=== PATIENT | female | born 1935 | race Caucasian/White ===

== ENCOUNTER 2016-11-08 19:01 | Observation (INO) | payer MEDICARE ==
[~2016-11-08] VITALS: Ht 157.5 cm; Wt 84.1 kg
[~2016-11-08 19:01] MED LIST: MECL-114 PO
[2016-11-08 19:14] VITALS: BP 144/54; PULSE 68; RESP 16; O2SAT 100
--- NOTE | 2016-11-08 19:15 | ED.REPORT ---
HPI-General Illness Date of Service Nov 08, 2016 ED Provider: Manny Dickson DO Pt is an 81 year old female with a hx of vertigo and CAD presenting to the ED via EMS complaining of near syncope. The pt was at home when she felt like she was going to pass out so she pushed the life alert button around her neck. She was incontinent of stool and had some chest burning. She denies any other symptoms at this time. Nursing Notes Stated Complaint: DIZZY Chief Complaint: General Complaint Nursing Notes Reviewed: Yes Allergies: Coded Allergies: No Known Allergies (Unverified , 11/08/16) Scheduled Amlodipine (Amlodipine) 10 Mg Tablet 10 MG PO DAILY Clopidogrel (Clopidogrel) 75 Mg Tablet 75 MG PO DAILY Insulin Lisp Protam/Lisp Human (HumaLOG 75/25 U100 Insulin Vial) 100 Unit/Ml Ml 20 UNIT SUBQ MORNING Insulin Lisp Protam/Lisp Human (HumaLOG 75/25 U100 Insulin Vial) 100 Unit/Ml Ml 8 UNIT SUBQ QPM Levetiracetam (Levetiracetam) 500 Mg Tablet 500 MG PO DAILY Losartan Potassium (Losartan Potassium) 100 Mg Tablet 100 MG PO DAILY Lovastatin (Lovastatin) 40 Mg Tablet 40 MG PO HS Meclizine (Bonine) 25 Mg Tab.chew 25 MG PO QID Metoprolol Tartrate (Metoprolol Tartrate) 50 Mg Tablet 25 MG PO BID Scheduled PRN Ergocalciferol (Vitamin D2) (Vitamin D2) 400 Unit Tablet 1,000 UNIT PO DAILY PRN PRN For Anxiety Miscellaneous Medications Vit #76/Iron,Carb/FA (Prenatabs Rx Tablet) 1 Each Tablet 1 EACH PO General Time Seen by MD: 19:15 Chief Complaint Other (Lightheaded) Hx Obtained From: Patient, EMS Arrived By: Ambulance Sudden in Onset?: Yes Symptom Duration: Since onset Quality: Burning Severity: Current: No pain currently Severity: Maximum: Mild Recent Healthcare: No recent doctor visit, No recent hospitalization Similar Sx Previous: No Past Medical History Past Medical History Stroke 2009 CAD Vertigo IDDM Past Surgical History CABG - Aortic valve replacement Social History Former alcohol use Ambulatory Status Cane Review of Systems Full Review of Systems Cardiovascular: Reports: Chest pain (Burning) GI: Reports: Diarrhea, Denies: Abdominal pain, Nausea, Vomiting Neurologic: Reports: Bowel dysfunction, Dizziness, Lightheaded, Denies: Change LOC, Headache, Numbness, Slurred speech, Syncope, Weakness Complete sys rev & neg: except as marked. Physical Exam Vital Signs Vital Signs Date Time Temp Pulse Resp B/P Pulse Ox O2 Delivery O2 Flow Rate FiO2 11/08/16 22:35 83 18 192/76 95 11/08/16 20:46 73 16 178/62 99 Room Air 11/08/16 19:14 36.9 68 16 144/54 100 Room Air Initial VS: Reviewed General/Constitutional: Well-developed, Well-nourished Head / Eyes: Atraumatic, Normocephalic, PERRL ENT: Mucous membranes moist, Conjunctiva normal, No scleral icterus Neck: Supple, Non-tender, Full range of motion Respiratory: Breath sounds normal, Clear to auscultation, No respiratory distress Extremities: Vascular intact, Neuro intact, No swelling, No tenderness Skin: Warm, Dry, No cyanosis Neurologic: Alert, Oriented, Nonfocal Psychiatric: Mood/affect normal, Behavior normal, Normal thought content Abdomen: Soft, Non-tender Bowel Sounds / Distention: Positive: Bowel sounds hyperactive Interpretation & Diagnostics Lab Results Interpretation Result Diagram: 11/08/16192911/08/161929 Test 11/08/16 19:30 11/08/16 22:00 White Blood Count 18.6th/mm3 (3.8-10.1) Red Blood Count 4.20mil/mm3 (3.90-5.20) Hemoglobin 12.8g/dL (12.0-15.6) Hematocrit 38.8% (35.0-46.0) Mean Corpuscular Volume 92.4fL (81-100) Mean Corpuscular Hemoglobin 30.5pg (27.0-35.0) Mean Corpuscular Hemoglobin Concent 33.0% (32.0-37.0) Red Cell Distribution Width 13.2% (12.3-15.4) Platelet Count 221bil/L (150-400) Neutrophils (%) (Auto) 78.7% (40-74) Lymphocytes (%) (Auto) 9.2% (14-46) Monocytes (%) (Auto) 10.8% (4-12) Eosinophils (%) (Auto) 0.8% (0-5) Basophils (%) (Auto) 0.3% (0-3) D-Dimer 0.8mg/L (<0.50) Sodium Level 142mEq/L (134-144) Potassium Level 3.9mEq/L (3.5-5.2) Chloride Level 103mEq/L (97-108) Carbon Dioxide Level 25mmol/L (18-29) Blood Urea Nitrogen 30mg/dL (8-27) Creatinine 1.32mg/dL (0.57-1.00) Estimat Glomerular Filtration Rate 55mL/min (>59) Glucose Level 116mg/dL (60-99) Calcium Level 10.1mg/dL (8.5-10.1) Magnesium Level 2.0mg/dL (1.6-2.6) Total Bilirubin 0.2mg/dL (0.0-1.2) Aspartate Amino Transf (AST/SGOT) 21U/L (0-50) Alanine Aminotransferase (ALT/SGPT) 20U/L (0-32) Alkaline Phosphatase 48U/L (25-165) Troponin T < 0.010ug/L (0.0-0.011) Total Protein 7.2g/dL (6.4-8.4) Albumin 4.1g/dL (3.4-5.0) Hold Carnes Top Tube Received (Received) Urine Color Straw (YELLOW) Urine Appearance Hazy (CLEAR,HAZY) Urine pH 6.0 (5.0-8.0) Urine Specific [place] 1.010 (1.003-1.035) Urine Protein Negativemg/dL (NEG,TRACE) Urine Glucose (UA) Negativemg/dL (NEGATIVE) Urine Ketones Negativemg/dL (NEGATIVE) Urine Occult Blood Negative (NEGATIVE) Urine Nitrite Negative (NEGATIVE) Urine Bilirubin Negative (NEGATIVE) Urine Urobilinogen Normalmg/dL (NORMAL) Urine Leukocyte Esterase Trace (NEGATIVE) Urine RBC 0-2/hpf (0-2) Urine WBC 0-5/hpf (0-5) Urine Epithelial Cells Many/hpf (NONE-MOD) Urine Crystals None seen (NONE SEEN) Urine Bacteria Moderate/hpf (NONE-FEW) Urine Hyaline Casts None/lpf (NONE) Urine Granular Casts None seen (NONE SEEN) Urine Waxy Casts None seen (NONE SEEN) Urine Red Blood Cell Casts None seen (NONE SEEN) Urine White Blood Cell Casts None seen (NONE SEEN) Urine Mucus None seen (None Seen) Urine Trichomonas None seen (NONE SEEN) Urine Yeast Moderate (NONE SEEN) Urine Culture Reflexed Indicated ECG Interpretation ECG Interpretation: Ventricular premature complex. Prolonged [place] interval. LBBB. Rate 65. Time: 19:21 Interpreted by: ED physician Normal ECG Interpretation: Normal sinus rhythm Rhythm Strip Interpretation : Rhythm Strip Interpretation: Narrow complex. Normal sinus with PVCs. Rhythm Strip Interpretation: Interpreted by me, Normal sinus rhythm X-Ray Chest Interpretation Chest Xray Interpretation: IMPRESSION: No acute disease Dictated by: Rafael Bowie M.D. on 11/08/2016 at 20:34 View: Portable, 1 view Interpretation / Wet Read by: Interpret - Radiologist CT Chest Interpretation IMPRESSION: No pulmonary embolism Scattered atelectasis/scarring. Dictated by: Rafael Bowie M.D. on 11/08/2016 at 22:01 Study type: CT pulm angiogram Interpretation / Wet Read by: Interpret - Radiologist Re-Eval/Medical Decision Med Decision/Clinical Course 81-year-old female with near syncope and chest pain. Symptoms were also associated with incontinence of stool. Her workup is very benign aside from an 18,000 white blood cell count. Pulmonary by ruled out. Myocardial infarction seems unlikely. I will admit her to the hospital for overnight observation and hydration as I expect she is dehydrated. Time of Eval: 23:07 Patient Status: Condition improved Re-Evaluation/Progress Note: Discussed plan for admission. Pt understands and agrees with plan. Consultation : Referral / Consult Name: Saige Lynne MD Consulted With: Hospitalist Call Returned at: 23:14 Final Inspector Balance Wheel: Will see patient, Agrees with plan, Accepts admit Counseled Regarding: Diagnosis, Lab results, Need for follow-up, When/why to return to ED Discharge & Departure Primary Impression: Near syncope Additional Impression: Chest pain Chest pain type: precordial chest pain Qualified Code: R07.2 - Precordial pain Disposition: ADMITTED TO HOSPITAL Discharge Condition All VS Reviewed: Yes Condition: Improved Referrals: CHELSEA BACK MD (PCP) Scribe Attestation Portions of this note were transcribed by Misty Arndt. I, Dr. Dickson personally performed the history, physical exam and medical decision-making; I reviewed and confirmed the accuracy of the information in the transcribed note. Signed by : Javi Flores, 11/08/2016 and 2318. copies to: CHELSEA BACK MD, Todd P DO Nov 08, 2016 19:15 MISTY ARNDT Nov 08, 2016 19:39
[2016-11-08 20:02] LABS: BASOPHILS % (AUTO) 0.3 % (0-3); EOSINOPHILS % (AUTO) 0.8 % (0-5); MONOCYTES % (AUTO) 10.8 % (4-12); Mean Corpuscular Hemoglobin 30.5 pg (27.0-35.0); Mean Corpuscular Volume 92.4 fL (81-100); NEUTROPHILS % (AUTO) 78.7 % (40-74); Platelet Count 221 bil/L (150-400)
[2016-11-08 20:18] LABS: TROPONIN T < 0.010 ug/L (0.0-0.011)
--- NOTE | 2016-11-08 20:36 | DRSVH ---
PROCEDURE: X-RAY CHEST ONE VIEW, PORTABLE ([id number]) INDICATIONS: dizzy TECHNIQUE: One view of the chest was acquired. COMPARISON: None. FINDINGS: Surgical changes and devices: Sternotomy wires and cardiac valvular prosthesis Lungs and pleura: No pleural effusions or pneumothorax. Lungs are clear. Mediastinum: Mediastinal contours appear normal. Heart size is normal. Bones and chest wall: No suspicious bony lesions. Overlying soft tissues appear unremarkable. IMPRESSION: No acute disease Dictated by: Rafael Bowie M.D. on 11/08/2016 at 20:34 Approved by: Rafael Bowie M.D. on 11/08/2016 at 20:34
[2016-11-08] MEDS ORDERED: 0.9% Sodium Chloride 1,000 ML IV ONE (20:45)
[2016-11-08 20:46] VITALS: BP 178/62; PULSE 73; RESP 16; O2SAT 99
--- NOTE | 2016-11-08 22:03 | DRSVH ---
PROCEDURE: CT ANGIO CHEST PULMONARY EMBOLISM ([id number]) INDICATIONS: near syncope, chest pain, dizzy, elelvated ddimer TECHNIQUE: After the administration of intravenous contrast, 2 mm thick sections acquired from the pulmonary api josy to the posterior costophrenic angles. 3-dimensional maximum intensity projection (MIP) coronal a nd sagittal reformats were then acquired through the thorax. For radiation dose reduction, the follo wing was used: automated exposure control, adjustment of mA and/or kV according to patient size. COMPARISON: None. FINDINGS: Image quality: Excellent. Pulmonary arteries: Pulmonary arteries are normal in size, and demonstrate no intraluminal filling d efects to suggest central pulmonary embolism. Lungs and pleura: No acute consolidation. Diffuse scarring/atelectasis No pleural effusions or pneumo thorax. Central and peripheral airways are patent. Mediastinum: Heart size is normal, without pericardial effusion. No mediastinal or hilar adenopathy . Thoracic aorta is normal in caliber and enhancement. Esophagus is normal in caliber, without hiat al hernia. Bones and chest wall: No suspicious bony lesions. Ribs and thoracic spine appear intact throughout. Thyroid gland is unremarkable. No axillary or supraclavicular adenopathy. Abdomen: Visualized upper abdominal solid organs appear normal in the early arterial phase of enhanc ement. IMPRESSION: No pulmonary embolism Scattered atelectasis/scarring. Dictated by: Rafael Bowie M.D. on 11/08/2016 at 22:01 Approved by: Rafael Bowie M.D. on 11/08/2016 at 22:01
[2016-11-08 22:35] VITALS: BP 192/76; PULSE 83; RESP 18; O2SAT 95
[2016-11-08 22:55] LABS: APPEARANCE,URINE HAZY (CLEAR,HAZY); COLOR,URINE STRAW (YELLOW); OCCULT BLOOD,URINE NEGATIVE (NEGATIVE); UROBILINOGEN,URINE NORMAL (NORMAL); YEAST,URINE MODERATE (NONE SEEN)
[2016-11-09] VITALS (11 sets, daily range): BP systolic 134–174; BP diastolic 62–78; PULSE 57–82; RESP 16–22; O2SAT 95–100
[2016-11-09] MEDS ORDERED: AMLO10TA3 PO (00:02)
[2016-11-09] MEDS ORDERED: LOSA100T29 PO (00:02)
[2016-11-09] MEDS ORDERED: METO50TA3 PO (00:03)
[2016-11-09] MEDS ORDERED: CLOP75TA28 PO (00:03)
[2016-11-09] MEDS ORDERED: LEVE500T3 PO (00:04)
[2016-11-09] MEDS ORDERED: PREN-54 PO (00:05)
[2016-11-09] MEDS ORDERED: LOVA40TA PO (00:05)
[2016-11-09] MEDS ORDERED: HMLG7525I SUBQ ×2 (00:06→00:07)
[2016-11-09] MEDS ORDERED: Polyethylene Glycol (PEG) 17 Gm Powder PO PRN (00:45)
[2016-11-09] MEDS ORDERED: Ondansetron 2 mg/mL 2 mL Inj IVPUSH PRN (00:45)
[2016-11-09] MEDS ORDERED: Alum-Mag Hydrox-Simeth 30 mL Suspension PO PRN (00:45)
[2016-11-09] MEDS ORDERED: ERGO400T7 PO (01:24)
--- NOTE | 2016-11-09 01:30 | NUR ---
ADMIT Pt admitted to unit via gurney around 0100. Pt oriented to floor, room, call light. Belongings stored in closet, waiver signed. Med rec completed, paged. Admission interventions and assessments completed. No s/sx of distress.
--- NOTE | 2016-11-09 02:11 | PCM.HPMED ---
Subjective Date of Service Nov 09, 2016 Primary Provider: Admitting Physician: Saige Lynne MD Primary Care Physician: Chelsea Back MD Attending Physician: Saige Lynne MD Chief Complaint: Dizziness and shakiness History of Present Illness: Samantha is an 81-year-old obese female with significant history of hypertension , diabetes mellitus on insulin, history of stroke and history of seizures who presents with near syncopal episode several hours prior to presentation in the ER. Samantha presents with her daughter Saige. She reports that on the afternoon of 11/08/2016 she was experiencing some heartburn which was relieved minimally by a generic [id number] antacid. She attempted to make something for herself for dinner, and experienced lightheadedness. This lightheadedness led to feeling unsteady on her feet with shakiness at which time she laid her head down on her arms on the counter. She notes that her body felt very heavy at this time. She then experienced one episode of diarrhea (she is usually constipated and had taken milk of magnesia 2 days previous). She also reports that she has had a low-grade daily headache for the last 2 weeks relieved by Tylenol (her history includes occasional headaches but not that frequently). She reports that she did not faint, but did call for help, and was brought to the ER. She reports that she presented to the ER back on 10/24/2016 with complaint of dizziness at which time she was given meclizine. She notes that the meclizine makes her very tired, so she only took it a few times, and is not currently taking it. There was a brain CT without contrast performed at that time which was negative for acute changes. In addition to the above, she reports chronic dizziness since her stroke in 2008. She reports for the last day or 2 experiencing more shortness of breath with exertion and occasional palpitations, but without chest pain. She reports that for the last several weeks she has had a "pulled muscle" in her right mid lower back which is uncomfortable when she moves or when it is pushed on. She otherwise denies other complaints. Review of Systems: Comprehensive review of systems conducted and was negative except for the pertinent positives listed in history of present illness above. 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)-she reports she has been taking clopidogrel ever since the surgery Diabetes mellitus type II (diagnosed in 2009) on insulin, and reports that her kidneys have been affected by this History of stroke in 2008 as a complication of her postsurgical recovery (AVR) * Right frontoparietal History of seizures following her stroke in 2008 Remote history of PUD without reported history of bleed Obesity Constipation AVR in 2008 Tonsillectomy decades ago Family History Report significant family history of hypertension in females Family history of diabetes mellitus Her mother had lymphoma Social History Hx Alcohol Use: Yes (never heavy, only very rarely now) Hx Substance Use: No Hx Tobacco Use: Yes Smoking Status: Former Smoker (never heavy, quit decades ago) Living Arrangement: with Family Exam Vital Signs Vital Sign - Last Date Time Temp Pulse Resp B/P Pulse Ox O2 Delivery O2 Flow Rate FiO2 11/08/16 22:35 83 18 192/76 95 11/08/16 20:46 Room Air 11/08/16 19:14 36.9 Intake and Output 11/08/16 11/08/16 11/09/16 Cumulative From/Thru 15:00 23:00 07:00 11/08/16 19:14 - 11/08/16 20:56 Intake Total 1000 ml 1000 ml Balance 1000 ml 1000 ml Intake IV Total 1000 ml 1000 ml Exam General: Alert, Oriented X3, Cooperative, mild Distress, sitting up on an ER gurney. Some shakiness present most notable in the arms. Head: Normocephalic, atraumatic. External ears normal. Eyes: PERRL, EOMI. Anicteric sclerae. Mouth: Mouth Normal, Mucous Membranes Moist/[place], upper and lower dentures present Neck: Neck supple with full range of motion. No Thyromegaly. Chest & Lungs: Clear to auscultation bilaterally with no crackles, wheezes, or rhonchi. Cardiovascular: Regular Rate/Rhythm, Normal S1, clinic on S2 consistent with AVR, No Murmurs/Rubs/Gallops appreciated. Radial and posterior tibial pulses are 2+ bilaterally. No JVD. Right-sided carotid bruit present. Abdomen: Non-tender, Non-distended, No masses, Normoactive bowel tones, Soft Musculoskeletal: Normal Range of Motion, there is some tightness of the paraspinal musculature bilaterally in the mid lower spine without spinous process tenderness. This is in the area of the right CVA. It is tender to palpation and percussion. Extremities: No cyanosis/clubbing/edema bilat Neurological: Grossly Neurologically Intact, Cranial Nerves 2-12 Intact, Normal Speech, Cerebellar Function nl Finger-Nose Psych: Normal mood and affect. Thought process and content intact. Lab and Diagnostics Labs Laboratory Tests 72 Hours Test 11/08/16 19:30 11/08/16 22:00 White Blood Count 18.6th/mm3 (3.8-10.1) Red Blood Count 4.20mil/mm3 (3.90-5.20) Hemoglobin 12.8g/dL (12.0-15.6) Hematocrit 38.8% (35.0-46.0) Mean Corpuscular Volume 92.4fL (81-100) Mean Corpuscular Hemoglobin 30.5pg (27.0-35.0) Mean Corpuscular Hemoglobin Concent 33.0% (32.0-37.0) Red Cell Distribution Width 13.2% (12.3-15.4) Platelet Count 221bil/L (150-400) Neutrophils (%) (Auto) 78.7% (40-74) Lymphocytes (%) (Auto) 9.2% (14-46) Monocytes (%) (Auto) 10.8% (4-12) Eosinophils (%) (Auto) 0.8% (0-5) Basophils (%) (Auto) 0.3% (0-3) D-Dimer 0.8mg/L (<0.50) Sodium Level 142mEq/L (134-144) Potassium Level 3.9mEq/L (3.5-5.2) Chloride Level 103mEq/L (97-108) Carbon Dioxide Level 25mmol/L (18-29) Blood Urea Nitrogen 30mg/dL (8-27) Creatinine 1.32mg/dL (0.57-1.00) Estimat Glomerular Filtration Rate 55mL/min (>59) Glucose Level 116mg/dL (60-99) Calcium Level 10.1mg/dL (8.5-10.1) Magnesium Level 2.0mg/dL (1.6-2.6) Total Bilirubin 0.2mg/dL (0.0-1.2) Aspartate Amino Transf (AST/SGOT) 21U/L (0-50) Alanine Aminotransferase (ALT/SGPT) 20U/L (0-32) Alkaline Phosphatase 48U/L (25-165) Troponin T < 0.010ug/L (0.0-0.011) Total Protein 7.2g/dL (6.4-8.4) Albumin 4.1g/dL (3.4-5.0) Hold Carnes Top Tube Received (Received) Urine Color Straw (YELLOW) Urine Appearance Hazy (CLEAR,HAZY) Urine pH 6.0 (5.0-8.0) Urine Specific [place] 1.010 (1.003-1.035) Urine Protein Negativemg/dL (NEG,TRACE) Urine Glucose (UA) Negativemg/dL (NEGATIVE) Urine Ketones Negativemg/dL (NEGATIVE) Urine Occult Blood Negative (NEGATIVE) Urine Nitrite Negative (NEGATIVE) Urine Bilirubin Negative (NEGATIVE) Urine Urobilinogen Normalmg/dL (NORMAL) Urine Leukocyte Esterase Trace (NEGATIVE) Urine RBC 0-2/hpf (0-2) Urine WBC 0-5/hpf (0-5) Urine Epithelial Cells Many/hpf (NONE-MOD) Urine Crystals None seen (NONE SEEN) Urine Bacteria Moderate/hpf (NONE-FEW) Urine Hyaline Casts None/lpf (NONE) Urine Granular Casts None seen (NONE SEEN) Urine Waxy Casts None seen (NONE SEEN) Urine Red Blood Cell Casts None seen (NONE SEEN) Urine White Blood Cell Casts None seen (NONE SEEN) Urine Mucus None seen (None Seen) Urine Trichomonas None seen (NONE SEEN) Urine Yeast Moderate (NONE SEEN) Urine Culture Reflexed Indicated Result Diagram: 11/08/16192911/08/161929 X-Rays, CTs and MRIs Date of Service: 11/08/161912 PROCEDURE: X-RAY CHEST ONE VIEW, PORTABLE ([id number]) INDICATIONS: dizzy COMPARISON: None. IMPRESSION: No acute disease Dictated by: Rafael Bowie M.D. on 11/08/2016 at 20:34 Date of Service: 11/08/162128 PROCEDURE: CT ANGIO CHEST PULMONARY EMBOLISM ([id number]) INDICATIONS: near syncope, chest pain, dizzy, elelvated ddimer COMPARISON: None. IMPRESSION: No pulmonary embolism Scattered atelectasis/scarring. Dictated by: Rafael Bowie M.D. on 11/08/2016 at 22:01 12-lead ECG Sinus rhythm with a rate of 65, and 1 PVC, normal axis, prolonged LA interval ( appears to be first-degree block), prolonged QRS (borderline), otherwise interval durations are normal, left bundle branch block, no significant ST or T- wave changes suggestive of ischemia. When compared with ECG on 10/24/2016 no significant change. Assessment & Plan 81-year-old obese female with history of stroke and chronic dizziness, hypertension, seizures, diabetes who presents with near syncope. 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 Near syncope in patient with chronic dizziness and history of stroke and seizures, dizziness and shakiness present on admission * Unclear etiology at this time. Differential includes neurocardiogenic/ vasovagal, orthostatic (deconditioning, perhaps autonomic neuropathy secondary to diabetes or CKD), cardiovascular (arrhythmia or mechanical), neurologic ( seizure, TIA/CVA, migraine). * She is not hypoxic, hypoglycemic. * We will start with orthostatic assessment * As she is hypertensive at this time, we will continue her Metoprolol tonight, but could consider holding this given her presentation * She will also get a dose of her evening Keppra tonight * We will check Keppra level and also check CPK * Carotid ultrasound, no need to repeat CT scan of the head (last done 2015) * Echo to assess for cardiac function, and any mechanical abnormalities ( valvular disease, please note history of AVR) * ECG repeated in the morning * Consideration for an exercise stress test with pharmacologic backup given her report of shortness of breath and palpitations * Telemetry * She received 1 L IVNS in the ER, but will hold off on further fluid administration 2. Shortness of breath and palpitations, present on admission * Unclear etiology, but suspect association with #1 * Perhaps related to an ACS (difficult to determine on ECG given her bundle branch block), or underlying infectious/other stress process given her hypertension and leukocytosis * No sign of fluid overload, pulmonary embolism, parenchymal pulmonary disease, anemia * Management as above * We will trend troponins * Monitor closely for symptoms 3. Leukocytosis with 78% neutrophils, present on admission * Unclear etiology at this point. * Chest x-ray is negative without respiratory symptoms (exception of SOB), urine analysis is unremarkable (please note moderate epithelial cells indicating contamination) without urinary symptoms, solitary episode of diarrhea of unclear significance. * Continue to monitor vitals and labs * No clear indication for antibiotics at this time 4. Hypertension, essential, worse on admission (when compared to patient report of ambulatory values) * Workup as in #1 * She will get metoprolol tonight according to home dose, but consideration for holding antihypertensives is certainly a possibility given her presentation * Will continue losartan and amlodipine at least tentatively until further consideration 5. Headache, reportedly mild but persistent, present on admission * Perhaps related to her hypertension, and hopefully will improve as that is treated * Tylenol as needed for symptom relief * Other workup as above 6. Renal insufficiency of unknown chronicity, present on admission * Elevated BUN and creatinine (please note that the BUN and creatinine on 2015 was 28/1.13). Otherwise unknown baseline * Patient and daughter report that the diabetes have "affected her kidneys," but this is nonspecific * She received a liter of IVNS in the ER * Avoid nephrotoxic medications if possible * Monitor lab 7.Diabetes mellitus type II on insulin, hyperglycemic on admission * Correction insulin to be started tonight, low-dose * We will check an A1c * Consideration for continuing patient's home insulin 8. History of AVR * Workup as noted in #1 and #2 9. History of seizures, on Keppra * We will continue Keppra * Workup as noted in #1 10. Right mid lower back discomfort, present on admission * Reports pulling a muscle, and notes increased discomfort with movement and palpation of the area * Suspect musculoskeletal etiology * Differential could include a right sided pyelonephritis given the location of the discomfort (but this is much less likely given her presentation and findings on UA) * Tylenol as needed for pain * Consideration for K pad if needed 11. First-degree AV block, present on admission and of unknown chronicity * Repeat ECG as noted above * Telemetry 12. Chronic hyperlipidemia * Continue statin PRN MEDICATIONS - Acetaminophen as needed for mild pain/fever/headache - Bowel regimen as needed - Antiemetic as needed Patient is admitted under observation status with expected length of stay less than 2 midnights due to severity of presenting symptoms, risk of adverse event, and complexity of treatment plan. Pain Evaluation: Adequate Pain Control GI Prophylaxis: Not indicated VTE Prophylaxis: Sub-Q Heparin (Unfractionated) Resuscitation Status: DNR/DNI:Do Not Resuscitate/Intubate Attending Statement Pt seen and examined by myself and agree with above plan. copies to: CHELSEA BACK MD, Collin T DO Nov 09, 2016 02:11 Saige Lynne MD Nov 09, 2016 06:13
[2016-11-09] MEDS ORDERED: Glucose 40% Oral Gel 15 Gm Tube PO PRN (02:15)
[2016-11-09 03:18] LABS: BASOPHILS % (AUTO) 0.3 % (0-3); EOSINOPHILS % (AUTO) 0.9 % (0-5); MONOCYTES % (AUTO) 9.1 % (4-12); Mean Corpuscular Hemoglobin 30.4 pg (27.0-35.0); Mean Corpuscular Volume 90.9 fL (81-100); NEUTROPHILS % (AUTO) 61.2 % (40-74); Platelet Count 191 bil/L (150-400)
[2016-11-09 03:40] LABS: TROPONIN T 0.01 ug/L (0.0-0.011)
[2016-11-09 03:51] LABS: Magnesium 1.8 mg/dL (1.6-2.6)
[2016-11-09] MEDS: Sodium Chloride LOK Flush 10 mL Syringe IVFLUSH SCH ×3 (03:52→17:06)
[2016-11-09] MEDS: Heparin 5,000 Unit/mL Inj SUBQ SCH ×3 (03:52→17:06)
[2016-11-09] MEDS: levETIRAcetam 500 mg Tablet PO SCH ×3 (03:52→20:20)
--- NOTE | 2016-11-09 04:00 | NUR ---
Rhythm/TELE 0400 tele requested 12 lead EKG for further evaluation of possible Wenckebach rhythm. No s/sx of distress from pt. EKG obtained, copy sent to TELE paged. up to room to review EKG strip. Continuing to monitor.
[2016-11-09] MEDS: Insulin LISPRO 300 Unit/3 mL Inj SUBQ SCH ×4 (08:00→20:20)
--- NOTE | 2016-11-09 10:42 | NUR ---
Abnormal Telemetry Dr Paez here and notified r/t epitaxial reactor technician Tele called and states," heart rate 43, mostly low 50 to low 60's, massive 0.36 first degree heart block briefly noted, non conductive PAC, pauses around 2 seconds." Also notified Dr paez that before scheduled blood pressure medication given heart rate 73 and blood pressure 145/58. doctor orders to hold metoprolol next dose and have tele print abnormal Tele. called and notified epitaxial reactor technician and aware.
--- NOTE | 2016-11-09 11:05 | DRSVH ---
PROCEDURE: US BILATERAL DUPLEX DOPPLER IMAGING OF THE CAROTIDS ([id number]) INDICATIONS: right-sided carotid bruit, dizziness TECHNIQUE: Color and pulse Doppler interrogation was performed of both carotid systems, with image documentation and velocity measurements. COMPARISON: None. FINDINGS: All stenosis calculations are based on NASCET criteria. Right side: Brachial blood pressure: 146/68 mm Hg. Common Carotid Artery(Distal) PSV: 109.50 cm/s Internal Carotid Artery PSV- Proximal: 67.90 cm/s waveform is abnormal. Mid: There is thought to be only a thread of opening at this point. Distal: 89.10 cm/s waveform becomes abnormal EDV - Proximal: 13 cm/s Distal: 21.30 cm/s External Carotid Artery(Proximal) PSV: 82.50 cm/s ICA/CCA PSV ratio: 0.8 Acevedo scale imaging description: Prominent atherosclerotic plaquing is present. Percent internal carotid artery stenosis: There is a critical stenosis, thread like only in the proxi mal internal carotid artery.. Vertebral artery: Flow direction is antegrade. Left side: Brachial blood pressure: 145/58 mm Hg. Common Carotid Artery(Distal) PSV: 130.80 cm/s Internal Carotid Artery PSV - Proximal: 104.90 cm/s Mid-lon.20 cm/s Distal: 105.60 cm/s, 114.10 cm/s EDV - Proximal: 23.90 cm/s Mid-lon.10 cm/s Distal: 21.80 cm/s, 22.40 cm/s External Carotid Artery(Proximal) PSV: 180.70 cm/s ICA/CCA PSV ratio: 0.9 Acevedo scale imaging description: There is moderate plaquing at the origin of the internal carotid nessa ry Percent internal carotid artery stenosis: Less than 50% diameter stenosis.. Vertebral artery: Flow direction is antegrade. IMPRESSION: There is a critical stenosis of the right internal carotid artery near the origin with wh at appears to be only a thread of opening that most. This is less than 50% diameter stenosis at the origin of the left internal carotid artery. Dictated by: Cirilo Bailey M.D. on 11/09/2016 at 11:03 Approved by: Cirilo Bailey M.D. on 11/09/2016 at 11:03
--- NOTE | 2016-11-09 12:04 | NUR ---
MRI Scan patient went for MRI. avelina paged Dr Carranza to notify that Telemetry off before MRI per radiology. windmill technician aware.
--- NOTE | 2016-11-09 12:27 | NUR ---
Back from MRI Patient back from MRI. Tele on and notified case monitor.
--- NOTE | 2016-11-09 13:40 | DRSVH ---
PROCEDURE: MRI STROKE PROTOCOL ([id number]) Pre- and post-contrast brain MRI, non-contrast brain MR angiogram, pre- and postcontrast neck MR linda ogram INDICATIONS: LIGHTHEADEDNESS,TIA TECHNIQUE: Brain: Noncontrast axial T1 spin echo, axial T2 fast spin echo, sagittal and axial FLAIR, coronal T2 fast spin echo, axial gradient echo, axial diffusion and ADC through the brain. After the administr ation of contrast, axial 3D VIBE of the cranial vasculature and brain. Brain MRA: Non-contrast 3-D time of flight MR angiogram, with multiple lsligdo-ifiwmojcv-abnlmwehra (MIP) reformats performed. Neck MRA: Axial and sagittal TruFISP through the neck. Coronal dynamic MR angiogram during administ ration of contrast in the arterial and venous phases, with 3-dimenstional qfzkvid-tsmmweaba-rzriuyeen n (MIP) reformats constructed from subtraction images. COMPARISON: [facility], CT, CT BRAIN WO CON, 10/24/2016, 10:35. [facility], US, US CAROTID DPLX DOPPLER BILAT, 11/09/2016, 7:48. FINDINGS: Image quality: Excellent. BRAIN: CSF spaces: Ventricles are normal in size and shape. Basal cisterns are patent. No extra-axial flu id collections. Brain: No intracranial bleeds or mass effects. Moderate sized chronic right anterolateral frontal l obe infarct. Moderate degree of patchy high FLAIR signal within the periventricular and subcortical w jaleel matter, most likely representing small vessel ischemic disease. Acevedo-white matter interface is n ormal. Diffusion weighted images show no acute ischemic insults. Brainstem appears normal. Normal intravascular flow voids are present. No abnormal intracranial enhancement. Skull and face: Calvarial marrow signal is normal. Orbits appear normal. Sinuses: Moderate bilateral mastoid fluid. Sinuses and mastoids are otherwise clear. BRAIN MR ANGIOGRAM: Anterior circulation: Intracranial internal carotid arteries are normal in size and enhancement. Th e flow within the paired anterior cerebral arteries is normal and symmetric. The flow within the mid dle cerebral arteries is normal and symmetric. The anterior communicating artery is seen. No stenos es, occlusions, or aneurysms. Posterior circulation: The visualized portions of the vertebral arteries demonstrate normal caliber, and join to form a normal appearing basilar artery. The flow within the posterior cerebral arteries is normal and symmetric. No stenoses, occlusions, or aneurysms. NECK MR ANGIOGRAM: Great vessels demonstrate a conventional anatomy as they arise from the aortic arch. There is a suboptimally visualized moderate stenosis of the innominate artery origin. Right subclavia n artery demonstrates a roughly 66% stenosis. Right vertebral artery is patent. The right common carotid artery is not well-seen proximally, but is patent distally. The right lock plater al carotid artery demonstrates a high-grade origin stenosis. The right internal carotid artery demons trates a roughly 50% origin stenosis, and is otherwise patent. The left common carotid artery is patent. The left external carotid artery demonstrates a mild origin stenosis. The left internal carotid artery demonstrates a roughly 20% origin stenosis. The left inte rnal carotid artery is tortuous, with a pharyngeal loop. The left subclavian artery is patent. There is a moderate left vertebral artery origin stenosis. Left vertebral artery is otherwise patent. IMPRESSION: BRAIN MRI: 1. No acute intracranial abnormality; no recent infarct. 2. Volume loss and small vessel ischemic disease. 3. Chronic right frontal lobe infarct. 4. Bilateral mastoid fluid. BRAIN MR ANGIOGRAM: Negative cerebral MR angiography. NECK MR ANGIOGRAM: 1. Moderate right and mild left internal carotid artery origin stenoses as described above. 2. Innominate and right subclavian artery stenoses. 3. Moderate left vertebral artery origin stenosis. Right vertebral artery patent. The estimate of stenosis included in the report of the imaging study was calculated using the NASCET method Findings were discussed with Dr. Carranza on 11.09.16 at 1332 hrs. Dictated by: Eduarda Mcdonald M.D. on 11/09/2016 at 13:39 Approved by: Eduarda Mcdonald M.D. on 11/09/2016 at 13:39
--- NOTE | 2016-11-09 14:41 | NUR ---
Ortho Blood pressure Laying 137/77 pulse 53. Sitting 155/65 pulse 59. Standing 169/68 pulse 74. patient c/o dizziness when changed position from sitting to standing position. denies shortness of breath at rest. slight shortness of breath noted from sitting to standing.
--- NOTE | 2016-11-09 15:37 | NUR ---
Social Work: Initial Assessment Data: Pt is an 81 y/o female admitted for near syncope with chest pain. Pt's PCP is Dr Carr, pt's insurance is [employer]. EMR reviewed, INFORMATION ASSURANCE ENGINEER met with pt and daughters at bedside, role explained. Pt states that she lives alone in a two story home where she uses a walker and cane and does not go down stairs. She reports that she drives locally, has no history with HH, spent time at [facility] in [place], and has not LTC or VA benefits. Pt is not a caregiver for another. INFORMATION ASSURANCE ENGINEER will continue to follow to R/O possible HH need. Assessment: Pt who is independent at baseline. Plan: Pt will d/c home via POV. INFORMATION ASSURANCE ENGINEER will continue to follow to R/O possible HH need. CAROLYN Sanchez Addendum: 11/09/16 at 1541 by AHSAN MULLEN Amended: Links added.
--- NOTE | 2016-11-09 21:02 | DRSVH ---
[facility] [address] [place] [address] Echocardiogram Report Name: IAN NICOLE Study Date: 11/09/2016 Height: 62 in Hospital Exam Location: [facility] Weight: 185 lb Gender: Female BSA: 1.8 m2 : 1935 Age: 81 yrs BP: 158/ 68 mmHg Reason For Study: DIZZINESS, PALPITATIONS, Hx AVR Ordering Physician: HOSPITALIST [facility] Performed By: Mateo Angel Referring Physician: CHARLES GUILLEN Interpretation Summary Color Doppler of small systolic jet near LVOT in the apical views suggests small perimembranous VSD. However, this could not be corroborated by continous wave Doppler. However, if present this is not causing any hemodynamic compromise. There is mild concentric left ventricular hypertrophy. The ejection fraction is estimated to be 60-65%. Left ventricular wall motion is normal. Assessment of diastolic parameters suggests a pseudonormalization pattern, consistent with elevated filling pressures. The right ventricle grossly appears normal in size with probable normal systolic function. The right ventricular systolic pressure is estimated at 34 mmHg assuming a right atrial pressure of 3 mm Hg. The left atrium is moderately dilated. Right atrial size is normal. There is moderate mitral annular calcification. The mitral valve mean gradient is 4.5 mmHg. There is moderate mitral regurgitation. There is a bioprosthetic aortic valve. The gradients through the prosthetic aortic valve are within the normal range for this type of valve. There is mild tricuspid regurgitation. The aortic root is normal size. Procedure: A two-dimensional transthoracic echocardiogram with color flow and Doppler was performed. There is no prior echocardiogram noted for this patient. Parasternal images are difficult; apical images are fair. The patient was in sinus bradycardia with heart rates between 52-59 bpm during the exam. Left Ventricle: The left ventricle is normal in size. There is mild concentric left ventricular hypertrophy. The ejection fraction is estimated to be 60-65%. Left ventricular wall motion is normal. Assessment of diastolic parameters suggests a pseudonormalization pattern, consistent with elevated filling pressures. Right Ventricle: The right ventricle grossly appears normal in size with probable normal systolic function. Atria: The left atrium is moderately dilated. Right atrial size is normal. The interatrial septum is intact with no evidence for an atrial septal defect. Mitral Valve: The mitral valve leaflets are mildly calcified. There is moderate mitral annular calcification. The mitral valve mean gradient is 4.5 mmHg. There is moderate mitral regurgitation. Aortic Valve: There is a bioprosthetic aortic valve. The gradients through the prosthetic aortic valve are within the normal range for this type of valve. There is no aortic regurgitation. Tricuspid Valve: The tricuspid valve is not well visualized, but is grossly normal. There is mild tricuspid regurgitation. The right ventricular systolic pressure is estimated at 34 mmHg assuming a right atrial pressure of 3 mm Hg. Pulmonic Valve: The pulmonic valve is not well visualized. There is a trace or physiologic amount of pulmonic regurgitation. Great Vessels: The aortic root is normal size. The ascending aorta is at the upper limits of normal in size. The pulmonary artery is not well visualized, but is probably normal size. The IVC is of normal diameter and collapses greater than 50% with a sniff. This suggests a low right atrial pressure of 3 mm Hg. Pericardium/ Pleura There is no pleural effusion. MMode/2D Measurements & Calculations LVIDd: 4.3 cm RA long axis asc Aorta LVIDs: 2.7 cm LA A2 area: 23.3 cm Diam: 3.3 cm FS: 36.2 % LA A4 area: 26.6 cm RA area EPSS: 0.45 cm LA length (vol): 5.9 cm IVSd: 1.1 cm LA vol: 89.2 ml : 18.1 cm LVPWd: 1.1 cm LA vol index RA vol: 51.6 ml RA : 27.9 mm2 IVC diam: 1.7 cm LV richards. diameter/BSA LV sys. diameter/BSA TAPSE: 1.9 cm (cm/m^2): 2.3 (cm/m^2): 1.5 Doppler Measurements & Calculations Ao V2 max MV E max rolan MV E/A: 1.5 TR max rolan : 199.1 cm/sec : 157.6 cm/sec Med Peak E' Rolan : 280.1 cm/sec Ao max PG MV A max rolan TR max PG : 15.9 mmHg : 105.3 cm/sec E/E' med: 32.5 : 31.4 mmHg Ao mean PG Lat Peak E' Rolan PA V2 max : 87.8 cm/sec LVOT Max Rolan E/E' lat: 23.0 PA mean PG : 106.4 cm/sec MV A dur: 0.20 sec : 1.9 mmHg sev ratio: 0.55 MV V2 mean Ao V2 mean LV V1 max PG PA V2 mean : 101.8 cm/sec : 143.8 cm/sec : 66.8 cm/sec MV mean PG Ao V2 VTI: 51.3 cm LV V1 VTI: 28.2 cm PA pr(Accel) : 35.4 mmHg MV V2 VTI: 49.3 cm MV dec time : 0.28 sec E/e' average: 27.8 Reading Physician:HENRIQUE
[2016-11-10] MEDS: Sodium Chloride LOK Flush 10 mL Syringe IVFLUSH SCH ×2 (00:01→08:22)
[2016-11-10] MEDS: Heparin 5,000 Unit/mL Inj SUBQ SCH ×2 (00:01→08:22)
[2016-11-10 02:23] VITALS: BP 128/61; PULSE 73; RESP 20; O2SAT 99
[2016-11-10 05:12] VITALS: BP 158/65; PULSE 63; RESP 20; O2SAT 98
--- NOTE | 2016-11-10 06:00 | NUR ---
Uneventful Night: Pt had an uneventful night, no c/o pain, chest pain, SOB or dizziness. Pt slept most of the night, pleasant and cooperative with care.
[2016-11-10 07:00] LABS: BASOPHILS % (AUTO) 0.9 % (0-3); EOSINOPHILS % (AUTO) 4.5 % (0-5); MONOCYTES % (AUTO) 10.7 % (4-12); Mean Corpuscular Hemoglobin 30.3 pg (27.0-35.0); Mean Corpuscular Volume 92.3 fL (81-100); NEUTROPHILS % (AUTO) 49.1 % (40-74); Platelet Count 184 bil/L (150-400)
[2016-11-10 07:23] LABS: Magnesium 1.7 mg/dL (1.6-2.6); Phosphorus 2.3 mg/dL (2.5-4.9)
[2016-11-10 08:00] VITALS: PULSE 62
[2016-11-10] MEDS: Insulin LISPRO 300 Unit/3 mL Inj SUBQ SCH ×2 (08:22→11:41)
[2016-11-10] MEDS: levETIRAcetam 500 mg Tablet PO SCH (08:22)
[2016-11-10 08:58] VITALS: BP 153/71; PULSE 71; RESP 20; O2SAT 99
--- NOTE | 2016-11-10 11:05 | NUR ---
Social Work Continued Discharge Planning: SW met with patient and daughter Marcia, at bedside to discuss discharge plan. Patient states plan as home. Patient states residing home independently but states that daughter and family to provide support and care. SW inquired if [facility] services needed upon discharge today. Patient denied need for such service arrangements at this time. Patient denied any further discharge planning needs. SW to follow. PLAN: Home with support from daughter and family. Transport via daughter POV. No other anticipated discharge needs. SW to follow. Marlys LEON Addendum: 11/10/16 at 1151 by GARRICK MULLEN Order for discharge acknowledged. No anticipated discharge needs identified. Marlys LEON
--- NOTE | 2016-11-10 11:05 | PCM.DIMED ---
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 Diet Low fat, Low Sodium, Heart Healthy Activity No restrictions Patient Instructions You were hospitalized with lightheadedness, you were treated supportively with IVF, remained stable. Instruction for PCP Please note that pt was found to have multiple stenosis in neck MRA, but MRI/ CTH negative for stroke. 1. Moderate right and mild left internal carotid artery origin stenoses 2. Innominate and right subclavian artery stenoses. 3. Moderate left vertebral artery origin stenosis. Right vertebral artery patent. It is likely to be atherosclerosis, no acute intervention pursued during hospitalization, pt remained stable. Please note that pt tolerated [id number] well, consider changing to moderate to high intensity statin if not contraindicated Patient showed prolonged AZ, consistent with hx of first degree AVB, however, no high degree blocks or pauses noticed Instruction for patient Please take precautionary measure as we discussed, slow moving, avoid long standing Please control your risks factors such as hypertension, diabetes, cholesterol Follow-up plan Please follow up with your doctor in 2weeks Follow-up Provider: CHELSEA BACK MD Follow-up with PCP in: 2 weeks Deven Carranza MD Nov 10, 2016 11:05
--- NOTE | 2016-11-10 12:00 | NUR ---
Discharge Patient given discharge orders. Patient given medication list with written and verbal explanation of when medications due next. Patient given informational packet. Patient IV removed fully intact and asymptomatic. Patient daughter in room at time of discharge instructions given and both were informed of follow up appointment needed. Patient finishing her lunch and will be assisted to main entrance by wheelchair.
--- NOTE | 2016-11-13 13:15 | PCM.DC.MED ---
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 Procedures XRay, CTs & MRIs Date of Service: 11/08/161912 PROCEDURE: X-RAY CHEST ONE VIEW, PORTABLE ([id number]) INDICATIONS: dizzy COMPARISON: None. IMPRESSION: No acute disease Dictated by: Rafael Bowie M.D. on 11/08/2016 at 20:34 Date of Service: 11/08/162128 PROCEDURE: CT ANGIO CHEST PULMONARY EMBOLISM ([id number]) INDICATIONS: near syncope, chest pain, dizzy, elelvated ddimer COMPARISON: None. IMPRESSION: No pulmonary embolism Scattered atelectasis/scarring. Dictated by: Rafael Bowie M.D. on 11/08/2016 at 22:01 ECG 12 Lead Sinus rhythm with a rate of 65, and 1 PVC, normal axis, prolonged NJ interval ( appears to be first-degree block), prolonged QRS (borderline), otherwise interval durations are normal, left bundle branch block, no significant ST or T- wave changes suggestive of ischemia. When compared with ECG on 10/24/2016 no significant change. Brief History Samantha is an 81-year-old obese female with significant history of hypertension , diabetes mellitus on insulin, history of stroke and history of seizures who presents with near syncopal episode several hours prior to presentation in the ER. Samantha presents with her daughter Saige. She reports that on the afternoon of 11/08/2016 she was experiencing some heartburn which was relieved minimally by a generic [id number] antacid. She attempted to make something for herself for dinner, and experienced lightheadedness. This lightheadedness led to feeling unsteady on her feet with shakiness at which time she laid her head down on her arms on the counter. She notes that her body felt very heavy at this time. She then experienced one episode of diarrhea (she is usually constipated and had taken milk of magnesia 2 days previous). She also reports that she has had a low-grade daily headache for the last 2 weeks relieved by Tylenol (her history includes occasional headaches but not that frequently). She reports that she did not faint, but did call for help, and was brought to the ER. She reports that she presented to the ER back on 10/24/2016 with complaint of dizziness at which time she was given meclizine. She notes that the meclizine makes her very tired, so she only took it a few times, and is not currently taking it. There was a brain CT without contrast performed at that time which was negative for acute changes. In addition to the above, she reports chronic dizziness since her stroke in 2008. She reports for the last day or 2 experiencing more shortness of breath with exertion and occasional palpitations, but without chest pain. She reports that for the last several weeks she has had a "pulled muscle" in her right mid lower back which is uncomfortable when she moves or when it is pushed on. She otherwise denies other complaints. Hospital Course 81-year-old obese female with history of stroke and chronic dizziness, hypertension, seizures, diabetes who presents with near syncope. 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 Initially there was concern of cardiac origin given known first degree AVB, pt was closely monitored on telemetry, no pauses of higher degree AVB observed. TTE showed unchanged AV, no other severe valvular dz or explainable causes. Orthostatic v/s did positive as symptoms were reproduced, however, v/s were not diagnostic. Pt underwent stroke w/u including carotid duplex, MR stroke protocol, which turned out that pt has critical stenosis of the right internal carotid artery near the origin with what appears to be only a thread of opening that most and also Innominate and right subclavian artery stenoses, Moderate left vertebral artery origin stenosis. This was thought be contributing her episodes, however, thought to be chronic atherosclerotic process. Imagines didn't show any signs of new stroke. it was noted that patient is on vasodilators for HTN, which might contribute to her symptoms. BP remained stable with her home regimen. Overall, given her postural dizziness on quick movement, while on standing, pt was advised to take precautionary measures such as getting up slowly in the bed, avoiding long-time standing and also control her risks cardiovascular risks factors vigorously. Pt was ambulating without recurrent symptoms, thought to be safe for discharge home. Results/findings were informed with the patient and the daughter upon d/c, asked to follow up with PCP in 2weeks for follow up. Exam Vital Signs (Last) Date Time Temp Pulse Resp B/P Pulse Ox O2 Delivery O2 Flow Rate FiO2 11/10/16 08:58 36.1 71 20 153/71 99 Room Air Exam NAD, comfortable, ambulating with normal gait MMM, supple neck, no JVD RRR, nl s1s2 no mrg CTAB, no w,c S,ND,NT,BS+ warm, no edema Test 11/08/16 19:30 11/08/16 22:00 11/09/16 03:00 11/09/16 09:55 D-Dimer 0.8mg/L (<0.50) Levetiracetam (Keppra) Level 20.9ug/mL (10.0-40.0) Urine Color Straw (YELLOW) Urine Appearance Hazy (CLEAR,HAZY) Urine pH 6.0 (5.0-8.0) Urine Specific [place] 1.010 (1.003-1.035) Urine Protein Negativemg/dL (NEG,TRACE) Urine Glucose (UA) Negativemg/dL (NEGATIVE) Urine Ketones Negativemg/dL (NEGATIVE) Urine Occult Blood Negative (NEGATIVE) Urine Nitrite Negative (NEGATIVE) Urine Bilirubin Negative (NEGATIVE) Urine Urobilinogen Normalmg/dL (NORMAL) Urine Leukocyte Esterase Trace (NEGATIVE) Urine RBC 0-2/hpf (0-2) Urine WBC 0-5/hpf (0-5) Urine Epithelial Cells Many/hpf (NONE-MOD) Urine Crystals None seen (NONE SEEN) Urine Bacteria Moderate/hpf (NONE-FEW) Urine Hyaline Casts None/lpf (NONE) Urine Granular Casts None seen (NONE SEEN) Urine Waxy Casts None seen (NONE SEEN) Urine Red Blood Cell Casts None seen (NONE SEEN) Urine White Blood Cell Casts None seen (NONE SEEN) Urine Mucus None seen (None Seen) Urine Trichomonas None seen (NONE SEEN) Urine Yeast Moderate (NONE SEEN) Urine Culture Reflexed Indicated Hemoglobin A1c 6.8% (4.8-5.6) Total Creatine Kinase 56U/L (21-215) Triglycerides Level 64mg/dL (0-149) Cholesterol Level 134mg/dL (100-199) LDL Cholesterol, Calculated 73.200mg/dL (0-99) VLDL Cholesterol 12.800mg/dL HDL Cholesterol 48mg/dL (>39) Cholesterol/HDL Ratio 2.79 (0.0-4.4) Thyroid Stimulating Hormone (TSH) 1.380uIU/mL (0.450-4.500) Free Thyroxine 1.30ng/dL (0.82-1.77) Hold Carnes Top Tube Received (Received) Troponin T 0.010ug/L (0.0-0.011) Test 11/10/16 06:20 White Blood Count 5.3th/mm3 (3.8-10.1) Red Blood Count 3.89mil/mm3 (3.90-5.20) Hemoglobin 11.8g/dL (12.0-15.6) Hematocrit 35.9% (35.0-46.0) Mean Corpuscular Volume 92.3fL (81-100) Mean Corpuscular Hemoglobin 30.3pg (27.0-35.0) Mean Corpuscular Hemoglobin Concent 32.9% (32.0-37.0) Red Cell Distribution Width 13.1% (12.3-15.4) Platelet Count 184bil/L (150-400) Neutrophils (%) (Auto) 49.1% (40-74) Lymphocytes (%) (Auto) 34.8% (14-46) Monocytes (%) (Auto) 10.7% (4-12) Eosinophils (%) (Auto) 4.5% (0-5) Basophils (%) (Auto) 0.9% (0-3) Sodium Level 142mEq/L (134-144) Potassium Level 4.1mEq/L (3.5-5.2) Chloride Level 105mEq/L (97-108) Carbon Dioxide Level 24mmol/L (18-29) Blood Urea Nitrogen 17mg/dL (8-27) Creatinine 1.02mg/dL (0.57-1.00) Estimat Glomerular Filtration Rate 74mL/min (>59) Glucose Level 173mg/dL (60-99) Calcium Level 9.5mg/dL (8.5-10.1) Phosphorus Level 2.3mg/dL (2.5-4.9) Magnesium Level 1.7mg/dL (1.6-2.6) Total Bilirubin 0.3mg/dL (0.0-1.2) Aspartate Amino Transf (AST/SGOT) 21U/L (0-50) Alanine Aminotransferase (ALT/SGPT) 19U/L (0-32) Alkaline Phosphatase 41U/L (25-165) Total Protein 5.8g/dL (6.4-8.4) Albumin 3.5g/dL (3.4-5.0) Discharge Medications Discharge Medications Amlodipine (Amlodipine) 10 Mg Tablet 10 MG PO DAILY (Reported) Clopidogrel (Clopidogrel) 75 Mg Tablet 75 MG PO DAILY (Reported) Insulin Lisp Protam/Lisp Human (HumaLOG 75/25 U100 Insulin Vial) 100 Unit/Ml Ml 20 UNIT SUBQ MORNING (Reported) Insulin Lisp Protam/Lisp Human (HumaLOG 75/25 U100 Insulin Vial) 100 Unit/Ml Ml 8 UNIT SUBQ QPM (Reported) Levetiracetam (Levetiracetam) 500 Mg Tablet 500 MG PO DAILY (Reported) Losartan Potassium (Losartan Potassium) 100 Mg Tablet 100 MG PO DAILY (Reported ) Lovastatin (Lovastatin) 40 Mg Tablet 40 MG PO HS (Reported) Meclizine (Bonine) 25 Mg Tab.chew 25 MG PO QID Prescribed by: BALBIR GONZALES MD Metoprolol Tartrate (Metoprolol Tartrate) 50 Mg Tablet 25 MG PO BID (Reported) As needed Ergocalciferol (Vitamin D2) (Vitamin D2) 400 Unit Tablet 1,000 UNIT PO DAILY PRN PRN For Anxiety (Reported) Miscellaneous Medications Vit #76/Iron,Carb/FA (Prenatabs Rx Tablet) 1 Each Tablet 1 EACH PO ( Reported) Followup Plan Disposition: home Follow-up plan Please follow up with your doctor in 2weeks Discharge Diet: Low fat, Low Sodium, Heart Healthy Discharge Activity: No restrictions Patient Instructions You were hospitalized with lightheadedness, you were treated supportively with IVF, remained stable. Instruction for PCP Please note that pt was found to have multiple stenosis in neck MRA, but MRI/ CTH negative for stroke. 1. Moderate right and mild left internal carotid artery origin stenoses 2. Innominate and right subclavian artery stenoses. 3. Moderate left vertebral artery origin stenosis. Right vertebral artery patent. It is likely to be atherosclerosis, no acute intervention pursued during hospitalization, pt remained stable. Please note that pt tolerated [id number] well, consider changing to moderate to high intensity statin if not contraindicated Patient showed prolonged NJ, consistent with hx of first degree AVB, however, no high degree blocks or pauses noticed Instruction for patient Please take precautionary measure as we discussed, slow moving, avoid long standing Please control your risks factors such as hypertension, diabetes, cholesterol Follow-up Provider: CHELSEA BACK MD Follow-up with PCP in: 2 weeks Time spent 65min Deven Carranza MD Nov 13, 2016 13:15
== END 2016-11-10 12:26 | disposition home or self-care (01) ==
LOC: SED 19:01 → MPC 23:37
PROVIDERS: ADMIT Specialist; ATTEND Specialist
DX: R42 Dizziness and giddiness (principal); I25.10 Atherosclerotic heart disease of native coronary artery without angina pectoris; I10 Essential (primary) hypertension; G40.909 Epilepsy, unspecified, not intractable, without status epilepticus; E11.9 Type 2 diabetes mellitus without complications; Z86.73 Personal history of transient ischemic attack (TIA), and cerebral infarction without residual deficits; E66.9 Obesity, unspecified; Z79.4 Long term (current) use of insulin; I44.7 Left bundle-branch block, unspecified; E78.5 Hyperlipidemia, unspecified; Z87.891 Personal history of nicotine dependence
CPT/HCPCS: 36415; 70549; 70553; 71010; 71275; 80053; 80061; 80299; 81000; 82550; 82948; 83036; 83735; 84100; 84439; 84443; 84484; 85025; 85379; 87086; 87088; 87186; 93005; 93880; 96360; 99285; A9585; C8929; G0378; J1644; J1815; J7030; Q9967